=== PATIENT | male | born 1990 | race Caucasian/White ===

== ENCOUNTER 2024-01-05 13:52 | Inpatient (IN) | payer OTHER, SELFPAY ==
[2024-01-05] MEDS ORDERED: Dextrose 5% in Water 1,000 ML IV PRN (14:30)
[2024-01-05] MEDS ORDERED: Glucagon 1 MG/ML KIT IM PRN (14:30)
[2024-01-05] MEDS ORDERED: Sodium Chloride 0.9% 1,000 ML IV PRN ×4 (14:30)
[2024-01-05] MEDS ORDERED: Dextrose 50% Abboject 50 ML SYRINGE SLOW IVP PRN (14:30)
[2024-01-05] MEDS ORDERED: Dextrose 5 %-0.45 % NaCl 1,000 ML IV PRN (14:30)
[2024-01-05] MEDS ORDERED: Insulin Reg, Human 100 UNITS in Sodium Chloride 0.9% 100 ML IVPB SCH (14:30)
[2024-01-05] MEDS: NS 0.9% w/ 20 MEQ KCL 1,000 ML/1,000 ML BAG IV PRN ×2 (14:51→16:58)
[2024-01-05] MEDS ORDERED: Electrolyte Replacement Protocol FS PRN (15:00)
[2024-01-05] MEDS: Electrolyte Replacement Protocol 1 EACH IVPB ONE (15:17)
[2024-01-05 15:21] VITALS: BMI 31.4
[2024-01-05 15:31] LABS: Lactic Acid 2.7 mmol/L (0.5-2.2)
[2024-01-05 15:44] LABS: Hemoglobin A1c 12.5 % (4.0-6.0)
[2024-01-05] MEDS: Ondansetron PF 4 MG/2 ML Vial IVP PRN (15:58)
[2024-01-05] MEDS: Potassium Phosphate 22 MMOL in Sodium Chloride 0.9% 250 ML 250 ML IVPB SCH (16:59)
[2024-01-05] MEDS: Insulin Reg, Human 100 UNITS in Sodium Chloride 0.9% 100 ML IVPB SCH (17:42)
[2024-01-05 17:46] LABS: Chloride 106 mmol/L (98-107); Sodium 129 mmol/L (136-145)
[2024-01-05 17:47] LABS: Calcium 7.8 mg/dL (7.8-10.44); Glucose 215 mg/dL (70-105)
[2024-01-05 17:49] LABS: Anion Gap 18 mmol/L (10-20)
[2024-01-05 17:51] LABS: BUN (Urea Nitrogen) 4 mg/dL (8.9-20.6); Calc. Creatinine Clearance 184 mL/min (70-130); Estimated GFR 120
[2024-01-05 17:53] LABS: HDL Cholesterol 18 mg/dL (>60 Neg Risk)
[2024-01-05 18:05] LABS: Carbon Dioxide 9 mmol/L (22-29)
[2024-01-05 18:19] LABS: Cardiac Risk 56.4 (Less than 4.5); Cholesterol 846 mg/dl (< 200 Desired)
[2024-01-05 18:22] LABS: Triglycerides Greater than 5680 mg/dL (Less than 150)
[2024-01-05] MEDS: D5 1/2 NS w/20 mEq KCL 1,000 ML IV PRN (18:34)
[2024-01-05 18:44] LABS: #Basophils Less than 0.03 10x3/uL (0.0-0.2); #Eosinphils Less than 0.03 10x3/uL (0.0-0.7); %Basophils 0.3 % (0.0-1.0); %Monocytes 13.6 % (0.0-10.0); %Neutrophils 72.8 % (42.0-75.0); Hematocrit 48.7 % (42.0-52.0); Hemoglobin 17.3 g/dL (14.0-18.0); Mean Corpuscular HGB CONC 35.5 g/dL (32.0-36.0); Mean Corpuscular Volume 95.7 fL (78.0-98.0); Mean Platelet Volume 10.3 fL (7.4-10.4); Platelet Count 236 10x3/uL (130-400); RBC Distribution Width 13.3 % (11.5-14.5); Red Blood Cell (RBC) Count 5.09 mill/uL (4.70-6.10)
[2024-01-05 19:12] LABS: Anion Gap 22 mmol/L (10-20); BUN (Urea Nitrogen) 4 mg/dL (8.9-20.6); Calc. Creatinine Clearance 144 mL/min (70-130); Calcium 7.9 mg/dL (7.8-10.44); Carbon Dioxide Less than 8 mmol/L (22-29); Chloride 106 mmol/L (98-107); Estimated GFR 95; Glucose 223 mg/dL (70-105); Potassium 4.1 mmol/L (3.5-5.1); Sodium 129 mmol/L (136-145)
[2024-01-05] MEDS: Morphine 4 MG/ML VIAL SLOW IVP PRN (20:59)
[2024-01-05] MEDS: Magnesium 2 GM/50 ML(in water) 2 GM in Premix 1 BAG IVPB SCH (22:15)
[2024-01-05 22:18] LABS: CO2 Tension 28.1 mmHg (35.0-45.0); Calcium, Ionized (arterial) 1.11 mmol/L (1.12-1.30); Carboxyhemoglobin (COHb) 0.6 gm% (0.0-3.0); Hematocrit-ABG 49 % (42.0-52.0); Hemoglobin (Hb) 16.6 g/dL (14.0-18.0); O2 Tension (PaO2), arterial 88.5 mmHg (80.0-100.0); Potassium - ABG Lab 3.68 mmol/L (3.70-5.30); pH, Arterial 7.238 (7.35-7.45)
[2024-01-05 22:25] LABS: ALV-art Gradient 76.015 mmHg (0-20); Actual Bicarbonate (HCO3a) 11.7 mEq/L (22-28); Puncture Site LRA
[2024-01-05 22:32] LABS: Anion Gap 19 mmol/L (10-20); BUN (Urea Nitrogen) 4 mg/dL (8.9-20.6); Calc. Creatinine Clearance 147 mL/min (70-130); Calcium 7.6 mg/dL (7.8-10.44); Carbon Dioxide 8 mmol/L (22-29); Chloride 108 mmol/L (98-107); Estimated GFR 97; Glucose 242 mg/dL (70-105); Magnesium 1.9 mg/dL (1.6-2.6); Phosphorus Less than 0.7 mg/dL (2.3-4.7); Potassium 3.9 mmol/L (3.5-5.1); Sodium 131 mmol/L (136-145)
[2024-01-05 23:33] LABS: Glucose 241 mg/dL (70-105)
[2024-01-05] MEDS: Lorazepam 2 MG/ML VIAL SLOW IVP SCH (23:41)
[2024-01-05] MEDS: Metoprolol Tartrate 5 MG (5 mL) VIAL IVP PRN (23:41)
[2024-01-06] MEDS: Potassium Phosphate 30 MMOL in Sodium Chloride 0.9% 250 ML 250 ML IVPB SCH ×2 (00:02→20:36)
[2024-01-06 01:05] LABS: Glucose 247 mg/dL (70-105)
[2024-01-06 01:36] LABS: Glucose 227 mg/dL (70-105)
[2024-01-06 03:18] LABS: Bacteria/HPF None Seen HPF (None Seen); Bilirubin Negative (Negative); Blood, Urine 1+ (Negative); Clarity Clear (Clear); Glucose, Urine (Dipstick) Greater than 1000 mg/dL (Negative); Ketone, Urine 60 mg/dL (Negative); Leukocyte Negative Leu/uL (Negative); Nitrite Negative (Negative); Protein, Urine (Dipstick) 70 mg/dL (Neg-Trace); RBC/HPF 0-3 HPF (0-3); Specific Gravity, Urine 1.033 (1.002-1.036); Squamous Epithelial None Seen HPF (0-3); Urobilinogen Normal mg/dL (Less than 2); WBC/HPF 0-3 HPF (0-3); pH, Urine 5.5 (5.0-9.0)
[2024-01-06 05:11] LABS: Glucose 200 mg/dL (70-105)
[2024-01-06 05:26] LABS: Phosphorus 0.8 mg/dL (2.3-4.7)
[2024-01-06 05:28] LABS: Hematocrit 48.2 % (42.0-52.0); Hemoglobin 16.5 g/dL (14.0-18.0); Mean Corpuscular HGB CONC 34.2 g/dL (32.0-36.0); Mean Corpuscular Hemoglobin 32.1 pg (27.0-31.0); Mean Corpuscular Volume 93.8 fL (78.0-98.0); Mean Platelet Volume 10.4 fL (7.4-10.4); Platelet Count 243 10x3/uL (130-400); RBC Distribution Width 13.6 % (11.5-14.5); Red Blood Cell (RBC) Count 5.14 mill/uL (4.70-6.10)
[2024-01-06 05:41] LABS: Glucose 197 mg/dL (70-105)
[2024-01-06 05:53] LABS: Anion Gap 14 mmol/L (10-20); BUN (Urea Nitrogen) Less than 4 mg/dL (8.9-20.6); Calc. Creatinine Clearance 166 mL/min (70-130); Calcium 7.2 mg/dL (7.8-10.44); Carbon Dioxide 11 mmol/L (22-29); Chloride 110 mmol/L (98-107); Estimated GFR 113; Glucose 199 mg/dL (70-105); Magnesium 2.2 mg/dL (1.6-2.6); Potassium 4.3 mmol/L (3.5-5.1); Sodium 131 mmol/L (136-145)
[2024-01-06 05:58] LABS: Anisocytosis SLIGHT = 6-15 cells HPF (0-5); Band 42 % (5-11); Large Platelets 2.3 % (0-5); Lymphocytes 23 % (21-51); Metamyelocyte 5 % (0-0); Monocytes 14 % (0-10); Neutrophil 16 % (42-75); Platelet Adequacy Comment Platelets Normal; Polychromasia SLIGHT = 2-3 cells HPF (0-2)
[2024-01-06] MEDS: Potassium Phosphate 30 MMOL in Sodium Chloride 0.9% 500 ML IVPB SCH (06:24)
[2024-01-06 07:31] LABS: Anion Gap 15 mmol/L (10-20); BUN (Urea Nitrogen) Less than 4 mg/dL (8.9-20.6); Calc. Creatinine Clearance 188 mL/min (70-130); Calcium 7.2 mg/dL (7.8-10.44); Carbon Dioxide 11 mmol/L (22-29); Chloride 112 mmol/L (98-107); Estimated GFR 120; Glucose 204 mg/dL (70-105); Potassium 3.6 mmol/L (3.5-5.1); Sodium 134 mmol/L (136-145)
[2024-01-06] MEDS: Pantoprazole DR 40 MG TAB PO SCH (08:40)
[2024-01-06] MEDS: Enoxaparin 40 MG (0.4 mL) SYRINGE SC SCH (08:40)
[2024-01-06] MEDS: INSULIN REGULAR IN 0.9 % NACL 100 UNITS in Premix 1 BAG IVPB SCH (08:40)
[2024-01-06] MEDS ORDERED: Lansoprazole 30 MG/10 ML UDCUP PER TUBE SCH (09:00)
[2024-01-06] MEDS ORDERED: Lansoprazole 30 MG/10 ML UDCUP PO SCH (09:00)
[2024-01-06] MEDS: D5 LR w/20 mEq KCL 1,000 ML IV SCH (09:30)
[2024-01-06] MEDS: Fenofibrate Nanocrystallized 145 MG TAB PO SCH (11:50)
[2024-01-06 13:10] LABS: Glucose 158 mg/dL (70-105)
[2024-01-06] MEDS: INSULIN REGULAR IN 0.9 % NACL 100 UNITS/100 ML BAG ONE (15:38)
[2024-01-06 16:04] LABS: Anion Gap 14 mmol/L (10-20); BUN (Urea Nitrogen) Less than 4 mg/dL (8.9-20.6); Calc. Creatinine Clearance 224 mL/min (70-130); Calcium 6.9 mg/dL (7.8-10.44); Carbon Dioxide 13 mmol/L (22-29); Chloride 110 mmol/L (98-107); Estimated GFR 127; Glucose 154 mg/dL (70-105); Phosphorus 0.7 mg/dL (2.3-4.7); Potassium 3.5 mmol/L (3.5-5.1); Sodium 133 mmol/L (136-145)
[2024-01-06] MEDS: Potassium Chloride 20 MEQ in Premix 1 BAG IVPB SCH (17:48)
[2024-01-06 21:42] LABS: Anion Gap 13 mmol/L (10-20); BUN (Urea Nitrogen) Less than 4 mg/dL (8.9-20.6); Calc. Creatinine Clearance 249 mL/min (70-130); Carbon Dioxide 15 mmol/L (22-29); Chloride 109 mmol/L (98-107); Estimated GFR 131; Glucose 164 mg/dL (70-105); Potassium 3.4 mmol/L (3.5-5.1); Sodium 134 mmol/L (136-145)
[2024-01-07 01:52] LABS: Anion Gap 14 mmol/L (10-20); BUN (Urea Nitrogen) Less than 4 mg/dL (8.9-20.6); Calc. Creatinine Clearance 257 mL/min (70-130); Carbon Dioxide 14 mmol/L (22-29); Chloride 111 mmol/L (98-107); Estimated GFR 132; Glucose 161 mg/dL (70-105); Potassium 3.8 mmol/L (3.5-5.1); Sodium 135 mmol/L (136-145)
[2024-01-07 05:01] LABS: Hematocrit 39.6 % (42.0-52.0); Hemoglobin 13.5 g/dL (14.0-18.0); Mean Corpuscular HGB CONC 34.1 g/dL (32.0-36.0); Mean Corpuscular Hemoglobin 31.5 pg (27.0-31.0); Mean Corpuscular Volume 92.3 fL (78.0-98.0); Mean Platelet Volume 10.5 fL (7.4-10.4); Platelet Count 174 10x3/uL (130-400); Red Blood Cell (RBC) Count 4.29 mill/uL (4.70-6.10)
[2024-01-07 05:10] LABS: ALT (SGPT) 15 U/L (8-55); AST (SGOT) 17 U/L (5-34); Albumin 2.2 g/dL (3.5-5.0); Alkaline Phosphatase 55 U/L (40-110); Bilirubin, Direct 0.1 mg/dL (0.1-0.3); Bilirubin, Total 0.6 mg/dL (0.2-1.2); Protein, Total 5.4 g/dL (6.0-8.3)
[2024-01-07 05:20] LABS: Anion Gap 12 mmol/L (10-20); BUN (Urea Nitrogen) Less than 4 mg/dL (8.9-20.6); Calc. Creatinine Clearance 249 mL/min (70-130); Calcium 7.1 mg/dL (7.8-10.44); Carbon Dioxide 16 mmol/L (22-29); Chloride 109 mmol/L (98-107); Estimated GFR 131; Glucose 142 mg/dL (70-105); Magnesium 1.7 mg/dL (1.6-2.6); Potassium 3.5 mmol/L (3.5-5.1); Sodium 133 mmol/L (136-145)
[2024-01-07 05:53] LABS: Band 40 % (5-11); Lymphocytes 2 % (21-51); Monocytes 5 % (0-10); Neutrophil 52 % (42-75); Platelet Adequacy Comment Platelets Normal; Polychromasia SLIGHT = 2-3 cells HPF (0-2); Smudge Cells 29.6 %
[2024-01-07] MEDS: Potassium Phosphate 22 MMOL in Sodium Chloride 0.9% 250 ML 250 ML IVPB SCH (08:24)
[2024-01-07] MEDS: Magnesium 2 GM/50 ML(in water) 2 GM in Premix 1 BAG IVPB SCH (08:24)
[2024-01-07] MEDS: Fenofibrate Nanocrystallized 145 MG TAB PO SCH (08:25)
[2024-01-07] MEDS ORDERED: Metoclopramide HCl 10 MG (2 mL) VIAL IVP PRN (09:01)
[2024-01-07 15:29] LABS: Phosphorus 1.2 mg/dL (2.3-4.7)
[2024-01-07] MEDS: Pantoprazole 40 MG VIAL IVP SCH (21:11)
[2024-01-07 21:58] LABS: Hematocrit 35.3 % (42.0-52.0); Hemoglobin 12.2 g/dL (14.0-18.0); Mean Corpuscular HGB CONC 34.6 g/dL (32.0-36.0); Mean Corpuscular Hemoglobin 31.9 pg (27.0-31.0); Mean Corpuscular Volume 92.4 fL (78.0-98.0); Mean Platelet Volume 10.1 fL (7.4-10.4); Platelet Count 190 10x3/uL (130-400); RBC Distribution Width 14.3 % (11.5-14.5); Red Blood Cell (RBC) Count 3.82 mill/uL (4.70-6.10)
[2024-01-07 22:25] LABS: Anisocytosis MODERATE=16-30 cells HPF (0-5); Band 26 % (5-11); Eosinophils 1 % (0-10); Lymphocytes 8 % (21-51); Macrocytosis MODERATE=16-30 cells HPF (0-5); Monocytes 2 % (0-10); Neutrophil 63 % (42-75); Platelet Adequacy Comment Platelets Normal; Polychromasia SLIGHT = 2-3 cells HPF (0-2); Smudge Cells 22.8 %
[2024-01-08] MEDS ORDERED: Dextrose 5% in Water 1,000 ML IV PRN (00:20)
[2024-01-08] MEDS: Insulin Glargine 30 UNITS/0.3 ML VIAL SC SCH (00:47)
[2024-01-08] MEDS: Lactated Ringer's 1,000 ML IV SCH (00:47)
[2024-01-08] MEDS: Potassium Phosphate 30 MMOL in Sodium Chloride 0.9% 500 ML IVPB SCH (01:04)
[2024-01-08] MEDS: Insulin Lispro 100 UNIT/ML 10 ML VIAL SC PRN (06:28)
[2024-01-08 06:46] LABS: Phosphorus 2.2 mg/dL (2.3-4.7)
[2024-01-08 07:40] LABS: Hemoglobin 11.4 g/dL (14.0-18.0); Mean Corpuscular HGB CONC 33.5 g/dL (32.0-36.0); Mean Corpuscular Hemoglobin 30.5 pg (27.0-31.0); Mean Corpuscular Volume 90.9 fL (78.0-98.0); Mean Platelet Volume 10.3 fL (7.4-10.4); Platelet Count 197 10x3/uL (130-400); RBC Distribution Width 14.5 % (11.5-14.5); Red Blood Cell (RBC) Count 3.74 mill/uL (4.70-6.10)
[2024-01-08 08:40] LABS: ALT (SGPT) 18 U/L (8-55); AST (SGOT) 19 U/L (5-34); Albumin 2.3 g/dL (3.5-5.0); Alkaline Phosphatase 59 U/L (40-110); Anion Gap 15 mmol/L (10-20); BUN (Urea Nitrogen) 4 mg/dL (8.9-20.6); Bilirubin, Total 0.7 mg/dL (0.2-1.2); Calc. Creatinine Clearance 249 mL/min (70-130); Carbon Dioxide 19 mmol/L (22-29); Chloride 107 mmol/L (98-107); Estimated GFR 131; Globulin 3.2 g/dL (2.4-3.5); Glucose 180 mg/dL (70-105); Potassium 3.8 mmol/L (3.5-5.1); Protein, Total 5.5 g/dL (6.0-8.3); Sodium 137 mmol/L (136-145); Triglycerides 390 mg/dL (Less than 150)
[2024-01-08 09:14] LABS: Band 12 % (5-11); Burr Cells MODERATE= 6-15 cells HPF (0-1); Lymphocytes 9 % (21-51); Monocytes 5 % (0-10); Neutrophil 72 % (42-75); Platelet Adequacy Comment Platelets Normal; Polychromasia SLIGHT = 2-3 cells HPF (0-2); Reactive Lymphocytes 1 % (0-10); Schistocytes SLIGHT = 2-5 cells HPF (0-1)
[2024-01-09] MEDS: Pantoprazole DR 40 MG TAB PO SCH (08:15)
[2024-01-09] MEDS: Insulin Glargine 30 UNITS/0.3 ML VIAL SC SCH ×2 (08:16→21:07)
[2024-01-09 08:25] LABS: #Basophils 0.05 10x3/uL (0.0-0.2); %Basophils 0.6 % (0.0-1.0); %Eosinophils 0.7 % (0.0-10.0); %Lymphocytes 13.4 % (21.0-51.0); %Monocytes 14.4 % (0.0-10.0); Hematocrit 37.4 % (42.0-52.0); Hemoglobin 12.4 g/dL (14.0-18.0); Mean Corpuscular HGB CONC 33.2 g/dL (32.0-36.0); Mean Corpuscular Hemoglobin 30.6 pg (27.0-31.0); Mean Corpuscular Volume 92.3 fL (78.0-98.0); Mean Platelet Volume 9.6 fL (7.4-10.4); Platelet Count 252 10x3/uL (130-400); RBC Distribution Width 14.7 % (11.5-14.5); Red Blood Cell (RBC) Count 4.05 mill/uL (4.70-6.10)
[2024-01-09 10:30] LABS: ALT (SGPT) 16 U/L (8-55); AST (SGOT) 14 U/L (5-34); Albumin 2.5 g/dL (3.5-5.0); Alkaline Phosphatase 72 U/L (40-110); Anion Gap 19 mmol/L (10-20); BUN (Urea Nitrogen) 5 mg/dL (8.9-20.6); Bilirubin, Total 0.8 mg/dL (0.2-1.2); Calc. Creatinine Clearance 238 mL/min (70-130); Calcium 8.9 mg/dL (7.8-10.44); Carbon Dioxide 13 mmol/L (22-29); Chloride 107 mmol/L (98-107); Estimated GFR 129; Globulin 3.4 g/dL (2.4-3.5); Glucose 209 mg/dL (70-105); Potassium 3.6 mmol/L (3.5-5.1); Protein, Total 5.9 g/dL (6.0-8.3); Sodium 135 mmol/L (136-145)
[2024-01-09] MEDS ORDERED: Iopamidol 370 76% 100 ML VIAL ONE (13:41)
[2024-01-09] MEDS: Metoprolol Tartrate 25 MG TAB PO SCH (21:00)
[2024-01-10 06:21] LABS: ALT (SGPT) 15 U/L (8-55); AST (SGOT) 14 U/L (5-34); Albumin 2.3 g/dL (3.5-5.0); Alkaline Phosphatase 63 U/L (40-110); Anion Gap 19 mmol/L (10-20); BUN (Urea Nitrogen) 7 mg/dL (8.9-20.6); Bilirubin, Total 0.6 mg/dL (0.2-1.2); Calc. Creatinine Clearance 230 mL/min (70-130); Calcium 8.9 mg/dL (7.8-10.44); Carbon Dioxide 13 mmol/L (22-29); Chloride 107 mmol/L (98-107); Estimated GFR 128; Globulin 3.5 g/dL (2.4-3.5); Glucose 220 mg/dL (70-105); Protein, Total 5.8 g/dL (6.0-8.3); Sodium 135 mmol/L (136-145)
[2024-01-10 06:33] LABS: Hematocrit 38.5 % (42.0-52.0); Hemoglobin 12.6 g/dL (14.0-18.0); Mean Corpuscular HGB CONC 32.7 g/dL (32.0-36.0); Mean Corpuscular Hemoglobin 30.7 pg (27.0-31.0); Mean Corpuscular Volume 93.7 fL (78.0-98.0); Mean Platelet Volume 9.9 fL (7.4-10.4); Platelet Count 231 10x3/uL (130-400); RBC Distribution Width 14.6 % (11.5-14.5); Red Blood Cell (RBC) Count 4.11 mill/uL (4.70-6.10)
[2024-01-10 07:44] LABS: Anisocytosis MARKED = >30 cells HPF (0-5); Band 9 % (5-11); Eosinophils 3 % (0-10); Large Platelets 2.8 % (0-5); Lymphocytes 10 % (21-51); Macrocytosis MODERATE=16-30 cells HPF (0-5); Monocytes 18 % (0-10); Myelocyte 1 % (0-0); Neutrophil 59 % (42-75); Ovalocytes SLIGHT = 2-5 cells HPF (0-1); Platelet Adequacy Comment Platelets Normal; Polychromasia SLIGHT = 2-3 cells HPF (0-2)
[2024-01-10] MEDS: Metoprolol Tartrate 25 MG TAB PO SCH (09:55)
[2024-01-10] MEDS: Calcium Carbonate 500 MG ChewTAB PO PRN (22:23)
[2024-01-10] MEDS: Acetaminophen 325 MG TAB PO PRN (22:23)
[2024-01-11 06:39] LABS: Hematocrit 38.5 % (42.0-52.0); Hemoglobin 12.5 g/dL (14.0-18.0); Mean Corpuscular HGB CONC 32.5 g/dL (32.0-36.0); Mean Corpuscular Hemoglobin 30.5 pg (27.0-31.0); Mean Corpuscular Volume 93.9 fL (78.0-98.0); Mean Platelet Volume 9.7 fL (7.4-10.4); Platelet Count 212 10x3/uL (130-400)
[2024-01-11 06:58] LABS: ALT (SGPT) 16 U/L (8-55); AST (SGOT) 21 U/L (5-34); Albumin 2.3 g/dL (3.5-5.0); Alkaline Phosphatase 238 U/L (40-110); Anion Gap 19 mmol/L (10-20); BUN (Urea Nitrogen) 6 mg/dL (8.9-20.6); Bilirubin, Total 0.5 mg/dL (0.2-1.2); Calc. Creatinine Clearance 276 mL/min (70-130); Calcium 8.7 mg/dL (7.8-10.44); Carbon Dioxide 14 mmol/L (22-29); Chloride 102 mmol/L (98-107); Estimated GFR 135; Globulin 3.6 g/dL (2.4-3.5); Glucose 196 mg/dL (70-105); Potassium 3.5 mmol/L (3.5-5.1); Protein, Total 5.9 g/dL (6.0-8.3); Sodium 131 mmol/L (136-145)
[2024-01-11 07:27] LABS: Band 12 % (5-11); Eosinophils 2 % (0-10); Large Platelets 2.9 % (0-5); Lymphocytes 11 % (21-51); Monocytes 18 % (0-10); Neutrophil 58 % (42-75); Platelet Adequacy Comment Platelets Normal; RBC Morphology Within Normal Limits
[2024-01-11 08:14] LABS: CRP,High Sensitivity (Inhouse) 22.94 mg/dL (< or = 0.5)
[2024-01-11] MEDS: Mag-Al Plus 1200/1200/120 MG (30 mL) UDCUP PO PRN (12:26)
[2024-01-12 05:51] LABS: Hemoglobin 12.6 g/dL (14.0-18.0); Mean Corpuscular HGB CONC 32.3 g/dL (32.0-36.0); Mean Corpuscular Volume 95.8 fL (78.0-98.0); Mean Platelet Volume 9.2 fL (7.4-10.4); Platelet Count 242 10x3/uL (130-400); RBC Distribution Width 13.5 % (11.5-14.5); Red Blood Cell (RBC) Count 4.07 mill/uL (4.70-6.10)
[2024-01-12 05:55] LABS: ALT (SGPT) 14 U/L (8-55); AST (SGOT) 15 U/L (5-34); Albumin 2.4 g/dL (3.5-5.0); Alkaline Phosphatase 64 U/L (40-110); Anion Gap 14 mmol/L (10-20); BUN (Urea Nitrogen) 6 mg/dL (8.9-20.6); Bilirubin, Total 0.5 mg/dL (0.2-1.2); Calc. Creatinine Clearance 262 mL/min (70-130); Calcium 8.8 mg/dL (7.8-10.44); Carbon Dioxide 21 mmol/L (22-29); Chloride 103 mmol/L (98-107); Estimated GFR 133; Globulin 3.4 g/dL (2.4-3.5); Glucose 188 mg/dL (70-105); Potassium 3.3 mmol/L (3.5-5.1); Protein, Total 5.8 g/dL (6.0-8.3); Sodium 135 mmol/L (136-145)
[2024-01-12] MEDS: Potassium Chloride 20 MEQ TAB PO SCH (08:11)
[2024-01-12] MEDS: Polyethylene Glycol 3350 17 GM Packet PO SCH (08:12)
[2024-01-12 08:20] LABS: Band 10 % (5-11); Lymphocytes 10 % (21-51); Monocytes 12 % (0-10); Neutrophil 68 % (42-75); Platelet Adequacy Comment Platelets Normal; Polychromasia SLIGHT = 2-3 cells HPF (0-2); Toxic Granulation SLIGHT
[2024-01-12 14:57] VITALS: BMI 31.4
[2024-01-12] MEDS: Senokot S 8.6-50 MG TAB PO SCH (20:55)
[2024-01-13 05:43] LABS: #Basophils 0.03 10x3/uL (0.0-0.2); %Basophils 0.3 % (0.0-1.0); %Eosinophils 0.4 % (0.0-10.0); %Lymphocytes 12.4 % (21.0-51.0); %Monocytes 12.8 % (0.0-10.0); %Neutrophils 72.4 % (42.0-75.0); Hematocrit 35.9 % (42.0-52.0); Hemoglobin 11.7 g/dL (14.0-18.0); Mean Corpuscular HGB CONC 32.6 g/dL (32.0-36.0); Mean Corpuscular Volume 95.2 fL (78.0-98.0); Mean Platelet Volume 9.3 fL (7.4-10.4); Platelet Count 252 10x3/uL (130-400); RBC Distribution Width 13.2 % (11.5-14.5); Red Blood Cell (RBC) Count 3.77 mill/uL (4.70-6.10)
[2024-01-13 06:30] LABS: ALT (SGPT) 12 U/L (8-55); AST (SGOT) 14 U/L (5-34); Albumin 2.3 g/dL (3.5-5.0); Alkaline Phosphatase 61 U/L (40-110); Anion Gap 13 mmol/L (10-20); BUN (Urea Nitrogen) 4 mg/dL (8.9-20.6); Bilirubin, Total 0.3 mg/dL (0.2-1.2); Calc. Creatinine Clearance 276 mL/min (70-130); Calcium 8.5 mg/dL (7.8-10.44); Carbon Dioxide 25 mmol/L (22-29); Chloride 100 mmol/L (98-107); Estimated GFR 135; Globulin 3.4 g/dL (2.4-3.5); Glucose 191 mg/dL (70-105); Potassium 3.3 mmol/L (3.5-5.1); Protein, Total 5.7 g/dL (6.0-8.3); Sodium 135 mmol/L (136-145)
[2024-01-13] MEDS: Potassium Chloride 20 MEQ TAB PO SCH (10:18)
[2024-01-13 11:22] VITALS: BP 131/88; TEMP 98.5
== END 2024-01-13 12:30 | disposition home or self-care (01) | DRG 438 ==
LOC: IMCU/EMU 14:16 → OBSVTOIN 14:36 → T4-A 01-09 17:00
PROVIDERS: ADMIT Internal Medicine; ATTEND Internal Medicine
PROC: 4A033R1 Measurement of Arterial Saturation, Peripheral, Percutaneous Approach (ICD-10-PCS; principal; 2024-01-05)
DX: K85.90 Acute pancreatitis without necrosis or infection, unspecified (principal); E10.10 Type 1 diabetes mellitus with ketoacidosis without coma; E87.1 Hypo-osmolality and hyponatremia; R63.1 Polydipsia; D72.829 Elevated white blood cell count, unspecified; E88.09 Other disorders of plasma-protein metabolism, not elsewhere classified; E83.51 Hypocalcemia; E78.1 Pure hyperglyceridemia; E83.39 Other disorders of phosphorus metabolism; E66.9 Obesity, unspecified; Z68.31 Body mass index [BMI] 31.0-31.9, adult; Z71.3 Dietary counseling and surveillance
CPT/HCPCS: 36415; 36416; 36600; 71045; 71275; 80048; 80053; 80061; 80076; 81003; 81015; 82805; 83036; 83605; 83690; 83735; 83880; 84100; 84478; 84681; 85025; 86141; 93005; 93010; 93306; C9113; J1650; J1815; J2060; J2270; J2405; J3475; J3480; J3490; J7030; J7050; J7120; Q9967